=== PATIENT | female | born 1980 | race Caucasian/White ===

== ENCOUNTER 2024-03-24 14:18 | Outpatient (CLI) | payer MEDICAID, SELFPAY ==
--- NOTE | 2024-03-24 14:27 | XR_ITS ---
WS: [id number] XR chest 2V* [id number] REASON FOR EXAM: DYSPNEA ON EXERTION FINDINGS: The chest is unchanged compared to 05/03/2018. Minimal tortuosity of the thoracic aorta. Normal heart size. Calcified granulomatous disease in both hemithoraces. No acute pulmonary parenchymal or pleural abnormality. Mild dextroscoliosis of the thoracic spine. XR/XR chest 2V* [id number] IMPRESSION: Stable chest without acute abnormality.
== END 2024-03-24 14:19 | disposition home or self-care (01) ==
LOC: RAD 14:19
PROVIDERS: Visit Provider Nurse Practitioner Family
DX: J84.10 Pulmonary fibrosis, unspecified (principal); R06.09 Other forms of dyspnea
CPT/HCPCS: 71046